=== PATIENT | male | born 2000 | race Caucasian/White ===

== ENCOUNTER 2021-09-13 11:49 | Outpatient (CLI) | payer OTHER, SELFPAY ==
--- NOTE | ~2021-09-13 | CT_ITS ---
EXAMINATION: CT pelvis wo/w con DATE: 09/13/2021 12:16 INDICATION: Pelvic pain in male. Prostate infection. TECHNIQUE: Computed tomography (CT) of the pelvis was performed without and with 100 mL Omnipaque 350 intravenous contrast. Automated exposure control and iterative reconstruction technique were employe d. The dose-length product was 581.30 mGy-cm. COMPARISON: None FINDINGS: There are no dilated loops of bowel. There are no pathologically enlarged lymph nodes. Ther e is trace pelvic ascites. The prostate is normal. There is arthritis of the sacroiliac joints, left worse than right. IMPRESSION: 1. No prostate abscess. 2. Arthritis of the sacroiliac joints, left worse than right. The differential diagnosis includes ost eoarthritis and inflammatory arthritis such as ankylosing spondylitis or enteropathy associated arthr itis. Reviewed, dictated and finalized at location E. TO DOOR SALES REPRESENTATIVE IMPRESSION: 1. No prostate abscess. 2. Arthritis of the sacroiliac joints, left worse than right. The differential diagnosis includes osteoarthritis and inflammatory arthritis such as ankylosing spondylitis or enteropathy associated arthritis.
[2021-09-13 12:05] LABS: Estimated Glomerular Filt Rate > 60
== END 2021-09-13 11:50 ==
PROVIDERS: Visit Provider Urology
DX: R10.2 Pelvic and perineal pain (principal); M47.898 Other spondylosis, sacral and sacrococcygeal region
CPT/HCPCS: 72194; Q9967

== ENCOUNTER 2021-12-23 08:59 | Emergency (ER) | payer OTHER, SELFPAY ==
--- NOTE | ~2021-12-23 | XR_ITS ---
EXAMINATION: XR chest 2V 12/23/2021 09:29 INDICATION: Midsternal chest pain PROCEDURE: 2 view chest COMPARISON: 10/01/2004 FINDINGS: The lungs are clear. The cardiomediastinal silhouette is within normal limits. There are no pleural effusions. There is no pneumothorax suspected. IMPRESSION: 1: NO ACUTE CARDIOPULMONARY DISEASE. Reviewed, dictated and finalized at location B.
--- NOTE | 2021-12-23 09:01 | ECG_ITS ---
Measurements Intervals [place] Rate: 92 P: 72 CO: 134 QRS: 79 QRSD: 97 T: 55 QT: 323 QTc: 400 Interpretive Statements SINUS RHYTHM BASELINE ARTIFACT- I, AVL NORMAL ECG Electronically Signed On 12-23-2021 9:26:20 CDT by Max Pineda D.O.
[2021-12-23 09:02] VITALS: BP 142/63; PULSE 97; RESP 18; TEMP 36.2; O2SAT 99
--- NOTE | 2021-12-23 09:16 | ED.CHESTPAIN ---
HPI - Chest Pain General Chief Complaint: Chest Pain Stated Complaint: CHEST PAIN Time Seen by Provider: 12/23/21 09:01 History of Present Illness HPI narrative: 21-year-old male history of type 1 diabetes presents the emergency room for evaluation of upper sternal chest pain has been present since yesterday. Patient states pain is constant and is worse when he extends his neck. Denies any shortness of breath, difficulty breathing, radiating pain. Patient describes his pain as kind of a stretching feeling. Denies fever Related Data Home Medications Medication Instructions Recorded Confirmed bupropion HCl mg PO 12/23/21 insulin aspart U-100 [Novolog 12/23/21 12/23/21 U-100 Insulin aspart] Allergies Allergy/AdvReac Type Severity Reaction Status Date / Time No Known Allergies Allergy Verified 12/23/21 09:01 Review of Systems Review of Systems: CONSTITUTIONAL: Denies fever, chills, or sweats. EYES: Denies visual changes, redness, or discharge. ENT: Denies rhinorrhea, congestion, sore throat, or otalgia. CARDIOVASCULAR: Reports chest pain RESPIRATORY: Denies cough or dyspnea. GASTROINTESTINAL: Denies abdominal pain, nausea, vomiting, or diarrhea. GENITOURINARY: Denies dysuria or hematuria. SKIN: Denies rash or itching. MUSCULOSKELETAL: Denies back pain, joint pain, or myalgia. NEUROLOGIC: Denies headache, numbness, dizziness, or weakness. PSYCHIATRIC: Denies anxiety or depression. [facility]LY [facility] Past Medical History Medical History (Updated 12/23/21 @ 10:39 by Ramón Alex, FLO) Type 1 diabetes Exam Narrative: GENERAL: Well-appearing, well-nourished, and in no acute distress. HEAD: Normocephalic, atraumatic. EYES: PERRLA and EOMI. ENT: Nares clear, no rhinorrhea or epistaxis. Mucous membranes moist. Oropharynx without tonsillar hypertrophy exudate or other lesions. Bilateral TMs pearly arch[place] nonbulging NECK: Supple. No adenopathy or masses. No carotid bruits or JVD CHEST: Clear to auscultation. No respiratory distress. No wheezes rales or rhonchi. Tenderness over the superior part of the sternum HEART: Regular rate and rhythm. No murmur heard. Normal peripheral pulses. ABDOMEN: Soft, nontender, nondistended, normal active bowel sounds. EXTREMITIES: Normal range of motion. No edema. SKIN: Warm, dry, no rash. NEURO: No focal deficits. Alert and oriented x3. PSYCH: Normal mood and affect. Course Vital Signs Vital signs: Vital Signs Temperature 36.2 C L 12/23/21 09:02 Pulse Rate 97 12/23/21 09:02 Respiratory Rate 18 12/23/21 09:02 Blood Pressure 142/63 H 12/23/21 09:02 Pulse Oximetry 99 12/23/21 09:02 Temperature 36.2 C L 12/23/21 09:02 Pulse Rate 97 12/23/21 09:02 Respiratory Rate 18 12/23/21 09:02 Blood Pressure 142/63 H 12/23/21 09:02 Pulse Oximetry 99 12/23/21 09:02 MDM - Chest Pain MDM Narrative Medical decision making narrative: 21-year-old male presents emergency room for evaluation of reproducible superior sternal chest wall pain. Patient is a type I diabetic. Patient denies any injury or trauma, but does state pain is worse when he fully extends his neck. CBC unremarkable. Troponin was negative. CMP shows a blood sugar of 301 which is consistent with his type 1 diabetes chest x-ray shows no acute cardiopulmonary process. Differential Diagnosis Differential diagnosis: Likely chest pain Lab Data Attestation: I reviewed the patient's lab results. Result diagrams: 12/23/21 09:37 12/23/21 09:37 Labs: Lab Results 12/23/21 12/23/21 Range/Units 09:37 09:37 WBC 7.3 (4.5-10.0) K/mm3 RBC 5.24 (4.6-6.20) M/mm3 Hgb 16.4 (14.0-18.0) g/dL Hct 46.9 (42.0-52.0) % MCV 89.5 (80-100) fl MCH 31.3 (26-34) pg MCHC 35.0 (32-36) g/dl RDW 11.8 (11.5-14.5) % Plt Count 235 (150-375) k/mm3 MPV 9.5 (7.4-10.4) fl Immature Gran % (Auto) 0.5 (0-0.5) % Neut % (Auto) 68.3 (45.5-73.1) % Lymph % (Aut
[2021-12-23 09:48] LABS: Basophils Percent Auto 0.4 % (0.2-1.2); Eosinophils Absolute Auto 0.1 K/mm3 (0-0.3); Eosinophils Percent Auto 1.6 % (0-4.4); Hematocrit 46.9 % (42.0-52.0); Hemoglobin 16.4 g/dL (14.0-18.0); Immature Granulocyte Absolute 0.04 K/mm3 (0.00-0.031); Immature Granulocyte Percent A 0.5 % (0-0.5); Lymphocytes Absolute Auto 1.61 K/mm3 (0.9-3.2); Mean Corpuscular Hemoglobin 31.3 pg (26-34); Mean Corpuscular Volume 89.5 fl (80-100); Mean Platelet Volume 9.5 fl (7.4-10.4); Monocytes Absolute Auto 0.5 K/mm3 (0.1-0.6); Monocytes Percent Auto 7.2 % (2.6-8.5); Neutrophils Percent Auto 68.3 % (45.5-73.1); Platelet Count Result 235 k/mm3 (150-375); Red Blood Count 5.24 M/mm3 (4.6-6.20); Red Cell Distribution Width 11.8 % (11.5-14.5); White Blood Count 7.3 K/mm3 (4.5-10.0)
[2021-12-23 10:01] LABS: Alanine Aminotransferase 16 U/L (6-50); Albumin Level 4.3 g/dL (3.5-5.1); Alkaline Phosphatase 67 U/L (38-126); Anion Gap 11 mmol/L (8-16); Aspartate Amino Transferase 23 U/L (17-59); Bilirubin,Total 1.1 mg/dL (0.2-1.3); Blood Urea Nitrogen 15 mg/dL (9-20); Carbon Dioxide 26 mmol/L (22-30); Chloride 100 mmol/L (98-107); Estimated CRCL calculation 132 ml/min; Estimated Glomerular Filt Rate > 60; Glucose 301 mg/dL (65-110); Potassium 4.2 mmol/L (3.4-5.0); Sodium 137 mmol/L (137-145)
[2021-12-23 10:12] LABS: Troponin I < 0.012 ng/mL (0.000-0.034)
[2021-12-23] MEDS: KETOROLAC (*BKC) 60 MG/2 ML VIAL IM (10:52)
[2021-12-23 11:15] VITALS: BP 126/51; PULSE 80; RESP 16
== END 2021-12-23 11:15 | disposition home or self-care (01) ==
PROVIDERS: Emergency Provider Nurse Practitioner Family; PCP Nurse Practitioner Family
DX: R07.89 Other chest pain (principal); E10.9 Type 1 diabetes mellitus without complications; Z79.4 Long term (current) use of insulin
CPT/HCPCS: 36415; 71046; 80053; 84484; 85025; 93005; 96372; 99284; J1885

== ENCOUNTER → 2022-05-24 11:20 | Outpatient (CLI) | payer OTHER, SELFPAY ==
--- NOTE | ~2022-05-24 | XR_ITS ---
EXAMINATION: XR lumbar spine 2-3V DATE: 05/24/2022 11:44 INDICATION: Low back pain TECHNIQUE: Anteroposterior and lateral views of the lumbar spine, and cone-down lateral view of the l umbosacral junction were obtained. COMPARISON: None. FINDINGS: There is no fracture, dislocation, or subluxation. The vertebral body heights, alignment, a nd intervertebral disc spaces are normal. The paravertebral soft tissues are unremarkable. IMPRESSION: 1. No acute osseous abnormality. Reviewed, dictated and finalized at location A.
== END ==
PROVIDERS: PCP Nurse Practitioner Family; Visit Provider Nurse Practitioner Family
DX: N50.812 Left testicular pain (principal)
CPT/HCPCS: 72100

== ENCOUNTER → 2022-07-11 10:25 | Outpatient (CLI) | payer OTHER, SELFPAY ==
--- NOTE | ~2022-07-11 | US_ITS ---
US scrotum doppler INDICATION: Testicular pain TECHNIQUE: Testicular sonogram utilizing grayscale and color Doppler FINDINGS: The testes are normal in size and appearance. No focal lesions are seen. The right testes measures 4.5 x 2.1 x 3 cm centimeters, and the left testis measures 4 x 2.4 x 2.5 cm cm. There is nor mal vascular flow to both testes. The right and left epididymides appear normal. There is a left varicocele. No significant hydrocele. IMPRESSION: 1. Left varicocele. Reviewed, dictated and finalized at location A. PLANNER IMPRESSION: 1. Left varicocele.
== END ==
PROVIDERS: PCP Nurse Practitioner Family; Visit Provider Urology
DX: I86.1 Scrotal varices (principal); N50.819 Testicular pain, unspecified
CPT/HCPCS: 76870; 93976

== ENCOUNTER → 2022-07-11 10:27 | Outpatient (CLI) | payer OTHER, SELFPAY ==
--- NOTE | ~2022-07-11 | CT_ITS ---
EXAMINATION: CT abdomen pelvis w con DATE: 07/11/2022 10:58 INDICATION: Pelvic pain TECHNIQUE: Computed tomography (CT) of the abdomen and pelvis was performed with 100 CC Omnipaque 350 intravenous contrast. Automated exposure control and iterative reconstruction technique were employe d. Exam dose: 529.60 mGy-cm total exam DLP. COMPARISON: 09/13/2021 CT pelvis FINDINGS: The lung bases are clear. Normal heart size. No pericardial or pleural effusion. The liver, gallbladder, bile ducts, spleen, pancreas, pancreatic duct, and adrenal glands and kidneys appear normal. Normal caliber of the abdominal aorta. No intraperitoneal or retroperitoneal or pelvic mass lesion or adenopathy or ascites. Normal appendix. No bowel obstruction, bowel wall thickening, pneumatosis or intraperitoneal free air . The urinary bladder and prostate gland are unremarkable. Small fat-containing umbilical hernia. There is some irregularity and sclerosis at the left sacroiliac joint. Differential diagnosis include s degenerative or posttraumatic change versus spondyloarthropathy or sacroiliac disorder associated w ith inflammatory bowel condition. IMPRESSION: Persistent abnormality left sacroiliac joint, stable since Reviewed, dictated and finalized at Location A. Reviewed, dictated and finalized at location B. MACHINE CRANE OPERATOR
[2022-07-11 10:47] LABS: Estimated Glomerular Filt Rate > 60
== END ==
PROVIDERS: PCP Nurse Practitioner Family; Visit Provider Urology
DX: R10.2 Pelvic and perineal pain (principal); Q76.49 Other congenital malformations of spine, not associated with scoliosis
CPT/HCPCS: 74177; Q9967